=== PATIENT | female | born 1955 | race Hispanic/Latino ===

== ENCOUNTER → 2019-12-22 | Outpatient (CLI) | payer MEDICARE | END | disposition home or self-care (01) | LOC: RAH 12-20 20:47 | PROVIDERS: ATTEND Family Medicine | DX: Z85.3 Personal history of malignant neoplasm of breast (principal) | CPT/HCPCS: 77065 ==

== ENCOUNTER 2019-12-28 12:14 | Emergency (ER) | payer MEDICARE ==
[2019-12-28 13:27] LABS: BASOPHILS % (AUTO) 0.6 % (0.0-5.0); EOSINOPHILS % (AUTO) 4.9 % (0.0-8.0); HEMATOCRIT 39.5 % (36-48); LYMPHOCYTES % (AUTO) 33.3 % (21.0-51.0); MEAN CORPUSCULAR HEMOGLOBIN 29.8 pg (27.0-33.0); MEAN CORPUSCULAR HGB CONC 33.2 g/dL (32.0-36.0); MEAN CORPUSCULAR VOLUME 89.8 fL (79-99); PLATELET COUNT (AUTO) 152 K/uL (130-400); RED CELL DISTRIBUTION WIDTH 13.1 % (11.0-15.5); WHITE BLOOD COUNT (AUTO) 4.7 K/uL (4.8-10.8)
[2019-12-28 13:51] LABS: INR 0.95 (0.85-1.15); PARTIAL THROMBOPLASTIN TIME 27.1 SEC (26.3-35.5); PROTHROMBIN TIME 10.3 SEC (9.6-11.6)
[2019-12-28] MEDS ORDERED: ONDANSETRON HCL 4 MG/2 ML VIAL ONE (13:59)
[2019-12-28] MEDS ORDERED: MORPHINE SULFATE 4 MG/1ML SYG ONE (14:00)
[2019-12-28] MEDS ORDERED: DICYCLOMINE HCL 10 MG/ML 2ML AMP IM ONE (14:07)
[2019-12-28 14:15] LABS: POTASSIUM 3.7 mmol/L (3.5-5.1)
[2019-12-28 14:19] LABS: ALBUMIN 3.7 g/dL (3.5-5.0); BILIRUBIN,DIRECT 0.1 mg/dL (0.0-0.3); BILIRUBIN,TOTAL 0.4 mg/dL (0.2-1.0); TOTAL PROTEIN, SERUM 6.8 g/dL (6.0-8.3)
[2019-12-28 14:39] LABS: CREATININE 0.7 mg/dL (0.5-1.5)
== END 2019-12-28 15:24 | disposition home or self-care (01) ==
LOC: EDH 12:14
DX: R10.31 Right lower quadrant pain (principal); R11.0 Nausea; F41.9 Anxiety disorder, unspecified; F32.9 Major depressive disorder, single episode, unspecified; Z90.710 Acquired absence of both cervix and uterus; Z90.49 Acquired absence of other specified parts of digestive tract
CPT/HCPCS: 36415; 74176; 80048; 80076; 82550; 83690; 84484; 85025; 85610; 85730; 93005; 96372; 99285; J0500; J2270; J2405

== ENCOUNTER 2020-10-26 16:57 | Emergency (ER) | payer MEDICARE ==
[2020-10-26 17:35] LABS: BASOPHILS % (AUTO) 0.4 % (0.0-5.0); EOSINOPHILS % (AUTO) 2.2 % (0.0-8.0); HEMATOCRIT 43.2 % (36-48); LYMPHOCYTES % (AUTO) 40.1 % (21.0-51.0); MEAN CORPUSCULAR HEMOGLOBIN 30.4 pg (27.0-33.0); MEAN CORPUSCULAR HGB CONC 33.1 g/dL (32.0-36.0); MEAN CORPUSCULAR VOLUME 91.9 fL (79-99); MONOCYTES % (AUTO) 6.2 % (3.0-13.0); PLATELET COUNT (AUTO) 178 K/uL (130-400); RED CELL DISTRIBUTION WIDTH 13.2 % (11.0-15.5); WHITE BLOOD COUNT (AUTO) 6.8 K/uL (4.8-10.8)
[2020-10-26] MEDS ORDERED: MEPERIDINE-PF 25 MG/ML SYG ONE (17:35)
[2020-10-26] MEDS ORDERED: 0.9%NACL 1000ML 1,000 ML IV ONE (17:37)
[2020-10-26 17:38] LABS: APPEARANCE,URINE Clear (CLEAR); BILIRUBIN,URINE Negative (NEGATIVE); COLOR,URINE Dark Yellow (YELLOW); GLUCOSE, URINE (UA) Negative (NEGATIVE); KETONES,URINE Trace mg/dL (NEGATIVE); LEUKOCYTE ESTERASE ,URINE Small (NEGATIVE); NITRATE,URINE Negative (NEGATIVE); OCCULT BLOOD,URINE Negative (NEGATIVE); PH,URINE 6.5 (5.0-8.0); PROTEIN,URINE Negative (NEGATIVE)
[2020-10-26 18:02] LABS: BACTERIA,URINE Few /HPF (None Seen); MUCUS,URINE Few LPF (None Seen); RBC,URINE None Seen /HPF (0-1)
[2020-10-26 18:43] LABS: CREATININE 0.8 mg/dL (0.5-1.5); POTASSIUM 3.4 mmol/L (3.5-5.1)
[2020-10-26 18:47] LABS: ALBUMIN 3.6 g/dL (3.5-5.0); BILIRUBIN,TOTAL 0.7 mg/dL (0.2-1.0); TOTAL PROTEIN, SERUM 7.1 g/dL (6.0-8.3)
[2020-10-26] MEDS ORDERED: IOHEXOL-350 75 ML VIAL IV ONE (19:28)
[2021-02-07] MEDS ORDERED: DIPH25CA85 PO (15:56)
[2021-02-07] MEDS ORDERED: LINA290C PO (15:56)
[2021-02-07] MEDS ORDERED: ALPR2TAB2 PO (15:56)
[2021-02-07] MEDS ORDERED: SERT100T PO (15:56)
== END 2020-10-26 21:33 | disposition home or self-care (01) ==
LOC: EDH 16:57
DX: G89.29 Other chronic pain (principal); R10.84 Generalized abdominal pain; R11.2 Nausea with vomiting, unspecified; F41.9 Anxiety disorder, unspecified; F32.9 Major depressive disorder, single episode, unspecified; K21.9 Gastro-esophageal reflux disease without esophagitis; Z90.49 Acquired absence of other specified parts of digestive tract; Z90.710 Acquired absence of both cervix and uterus; Z72.0 Tobacco use
CPT/HCPCS: 36415; 74176; 80053; 81001; 83690; 85025; 87040 ×2; 96361 ×2; 96374; 96375; 99284; J2175; J7030; Q9967

== ENCOUNTER 2020-12-06 17:02 | Emergency (ER) | payer MEDICARE ==
[2020-12-06] MEDS ORDERED: SODIUM CHLORIDE 0.9% 1000ML 1,000 ML IV ONE (17:29)
[2020-12-06 18:00] LABS: BASOPHILS % (AUTO) 0.6 % (0.0-5.0); EOSINOPHILS % (AUTO) 3.3 % (0.0-8.0); HEMATOCRIT 41.6 % (36-48); LYMPHOCYTES % (AUTO) 24.4 % (21.0-51.0); MEAN CORPUSCULAR HEMOGLOBIN 30.9 pg (27.0-33.0); MEAN CORPUSCULAR HGB CONC 34.1 g/dL (32.0-36.0); MEAN CORPUSCULAR VOLUME 90.6 fL (79-99); MONOCYTES % (AUTO) 8.5 % (3.0-13.0); PLATELET COUNT (AUTO) 205 K/uL (130-400); RED BLOOD CELL COUNT(AUTO) 4.59 MIL/uL (4.00-5.50); RED CELL DISTRIBUTION WIDTH 13.6 % (11.0-15.5); WHITE BLOOD COUNT (AUTO) 6.4 K/uL (4.8-10.8)
[2020-12-06 18:09] LABS: CREATININE 1.3 mg/dL (0.5-1.5); POTASSIUM 3.4 mmol/L (3.5-5.1)
[2020-12-06 18:11] LABS: INR 0.97 (0.85-1.15); PROTHROMBIN TIME 10.6 SEC (9.6-11.6)
[2020-12-06 18:13] LABS: PARTIAL THROMBOPLASTIN TIME 27.3 SEC (26.3-35.5)
[2020-12-06 18:14] LABS: ALBUMIN 4.2 g/dL (3.5-5.0); BILIRUBIN,TOTAL 0.4 mg/dL (0.2-1.0); TOTAL PROTEIN, SERUM 8.6 g/dL (6.0-8.3)
[2020-12-06] MEDS ORDERED: KETOROLAC TROMETHAMINE 30MG/ML ONE (19:30)
== END 2020-12-06 21:04 | disposition home or self-care (01) ==
LOC: EDH 17:02
DX: E86.9 Volume depletion, unspecified (principal); R55 Syncope and collapse; G89.29 Other chronic pain; R10.9 Unspecified abdominal pain; F41.9 Anxiety disorder, unspecified; F32.9 Major depressive disorder, single episode, unspecified; K21.9 Gastro-esophageal reflux disease without esophagitis; Z90.49 Acquired absence of other specified parts of digestive tract; Z90.710 Acquired absence of both cervix and uterus; Z88.5 Allergy status to narcotic agent
CPT/HCPCS: 36415; 80053; 82550; 83605; 83690; 84484; 85025; 85610; 85730; 93005; 96361; 96365; 96375; 99284; J1885; J7030

== ENCOUNTER 2021-01-27 18:55 | Emergency (ER) | payer MEDICARE ==
[~2021-01-27] VITALS: Ht 149.9 cm; Wt 62.6 kg
[2021-01-27 20:48] LABS: APPEARANCE,URINE Clear (CLEAR); BILIRUBIN,URINE Negative (NEGATIVE); COLOR,URINE Yellow (YELLOW); GLUCOSE, URINE (UA) Negative (NEGATIVE); KETONES,URINE Negative (NEGATIVE); LEUKOCYTE ESTERASE ,URINE Trace (NEGATIVE); NITRATE,URINE Negative (NEGATIVE); OCCULT BLOOD,URINE Negative (NEGATIVE); PH,URINE 8.5 (5.0-8.0); PROTEIN,URINE Negative (NEGATIVE)
[2021-01-27 20:52] LABS: HEMATOCRIT 37.4 % (36-48); MEAN CORPUSCULAR HEMOGLOBIN 31.1 pg (27.0-33.0); MEAN CORPUSCULAR HGB CONC 34.5 g/dL (32.0-36.0); MEAN CORPUSCULAR VOLUME 90.1 fL (79-99); RED BLOOD CELL COUNT(AUTO) 4.15 MIL/uL (4.00-5.50); RED CELL DISTRIBUTION WIDTH 13.4 % (11.0-15.5); WHITE BLOOD COUNT (AUTO) 6.1 K/uL (4.8-10.8)
[2021-01-27 20:56] LABS: BACTERIA,URINE Rare /HPF (None Seen); MUCUS,URINE Rare LPF (None Seen); RBC,URINE 0-1 /HPF (0-1); SQUAMOUS EPITHELIAL CELL,UR Rare /HPF (0-2)
[2021-01-27 21:00] VITALS: BP 121/70
[2021-01-27] MEDS ORDERED: PROMETHAZINE HCL 25 MG/ML 1ML AMPULE IM SCH (21:00)
[2021-01-27] MEDS ORDERED: LIDOCAINE 2G/250ML 250 ML IV SCH (21:00)
[2021-01-27] MEDS ORDERED: SODIUM CHLORIDE 0.9% 1000ML 1,000 ML IV ONE (21:00)
[2021-01-27 21:05] LABS: CREATININE 0.7 mg/dL (0.5-1.5); POTASSIUM 3.6 mmol/L (3.5-5.1)
[2021-01-27] MEDS ORDERED: LIDOCAINE HCL-MPF 2% 5ML VIAL ONE (21:14)
[2021-01-27] MEDS ORDERED: SODIUM CHLORIDE 0.9% 100 ML IV ONE (21:15)
[2021-01-27 21:30] LABS: ALBUMIN 3.6 g/dL (3.5-5.0); BILIRUBIN,DIRECT 0.1 mg/dL (0.0-0.3); BILIRUBIN,TOTAL 0.4 mg/dL (0.2-1.0); TOTAL PROTEIN, SERUM 7.2 g/dL (6.0-8.3)
[2021-01-27] MEDS ORDERED: LIDOCAINE HCL-MPF 2% 5ML VIAL IV SCH (21:30)
== END 2021-01-28 00:13 | disposition left against medical advice (07) ==
LOC: EDH 18:55
DX: R10.9 Unspecified abdominal pain (principal); G89.29 Other chronic pain; R11.2 Nausea with vomiting, unspecified; F41.9 Anxiety disorder, unspecified; F03.90 Unspecified dementia, unspecified severity, without behavioral disturbance, psychotic disturbance, mood disturbance, and anxiety; M79.7 Fibromyalgia; Z85.3 Personal history of malignant neoplasm of breast; M19.90 Unspecified osteoarthritis, unspecified site; Z88.5 Allergy status to narcotic agent; Z79.899 Other long term (current) drug therapy; Z87.19 Personal history of other diseases of the digestive system; Z90.710 Acquired absence of both cervix and uterus; Z98.890 Other specified postprocedural states
CPT/HCPCS: 36415; 80048; 80076; 81001; 83605; 83690; 84484; 85027; 93005; 96360; 96372; 99284; J2550; J3490; J7030; J2001

== ENCOUNTER 2022-10-26 12:22 | Emergency (ER) | payer OTHER, MEDICARE ==
[~2022-10-26] VITALS: Ht 152.4 cm; Wt 65.8 kg
[~2022-10-26 12:22] MED LIST: ALPR2TAB2 PO; DIPH25CA85 PO; LINA290C PO; SERT100T PO
[2022-10-26 13:02] LABS: BASOPHILS % (AUTO) 0.5 % (0.0-5.0); EOSINOPHILS % (AUTO) 3.4 % (0.0-8.0); HEMATOCRIT 40.6 % (36-48); LYMPHOCYTES % (AUTO) 38.7 % (21.0-51.0); MEAN CORPUSCULAR HGB CONC 34.5 g/dL (32.0-36.0); MEAN CORPUSCULAR VOLUME 87.1 fL (79-99); MONOCYTES % (AUTO) 5.5 % (3.0-13.0); NEUTROPHILS % (AUTO) 51.7 % (40.0-77.0); PLATELET COUNT (AUTO) 157 K/uL (130-400); RED BLOOD CELL COUNT(AUTO) 4.66 MIL/uL (4.00-5.50); RED CELL DISTRIBUTION WIDTH 13.3 % (11.0-15.5); WHITE BLOOD COUNT (AUTO) 6.1 K/uL (4.8-10.8)
[2022-10-26 13:13] LABS: CREATININE 0.6 mg/dL (0.5-1.5); POTASSIUM 3.5 mmol/L (3.5-5.1)
[2022-10-26 13:22] LABS: ALBUMIN 3.7 g/dL (3.5-5.0); MAGNESIUM 1.9 mg/dL (1.80-2.40); TOTAL PROTEIN, SERUM 7.2 g/dL (6.0-8.3)
[2022-10-26 13:54] LABS: APPEARANCE,URINE CLEAR (CLEAR); BILIRUBIN,URINE NEGATIVE (NEGATIVE); COLOR,URINE YELLOW (YELLOW); GLUCOSE, URINE (UA) NEGATIVE (NEGATIVE); KETONES,URINE NEGATIVE (NEGATIVE); LEUKOCYTE ESTERASE ,URINE NEGATIVE Leu/uL (NEGATIVE); NITRATE,URINE NEGATIVE (NEGATIVE); OCCULT BLOOD,URINE NEGATIVE (NEGATIVE); PH,URINE 5.5 (5.0-8.0); PROTEIN,URINE NEGATIVE (NEGATIVE); UROBILINOGEN,URINE 0.2 mg/dL (0.2-1.0)
[2022-10-26 14:17] LABS: B-TYPE NATRIURETIC PEPTIDE 6 pg/mL (0-100)
[2022-10-26] MEDS ORDERED: MEPERIDINE-PF 25 MG/ML SYG IM ONE (17:30)
[2022-10-26] MEDS ORDERED: PROMETHAZINE HCL 25 MG/ML 1ML AMPULE IM ONE (17:30)
[2022-10-26 17:40] VITALS: BP 147/68
== END 2022-10-26 18:12 | disposition home or self-care (01) ==
LOC: EDH 12:22
DX: G89.29 Other chronic pain (principal); R10.11 Right upper quadrant pain; E78.00 Pure hypercholesterolemia, unspecified; F17.200 Nicotine dependence, unspecified, uncomplicated; Z90.710 Acquired absence of both cervix and uterus; Z90.89 Acquired absence of other organs; Z79.899 Other long term (current) drug therapy; Z88.5 Allergy status to narcotic agent; Z88.8 Allergy status to other drugs, medicaments and biological substances; Z20.822 Contact with and (suspected) exposure to COVID-19
CPT/HCPCS: 99285; 74176; 71045; 87635; 83735; 84484; 80053; 83880; 83690; 85025; 87804 ×2; 81003; 36415; 96372; 93005; C9803; J2550; J2175

== ENCOUNTER 2023-06-21 16:05 | Emergency (ER) | payer OTHER, MEDICARE ==
[~2023-06-21] VITALS: Ht 149.9 cm; Wt 64.4 kg
[2023-06-21 16:58] LABS: BASOPHILS # (AUTO) 0.04 K/uL (0.00-0.20); BASOPHILS % (AUTO) 0.4 % (0.0-5.0); HEMATOCRIT 44.8 % (36-48); IMMATURE GRANULOCYTE ABSOLUTE 0.04 K/uL (0-1); LYMPHOCYTES # (AUTO) 1.2 K/uL (1.0-4.8); MEAN CORPUSCULAR HEMOGLOBIN 31.8 pg (27.0-33.0); MEAN CORPUSCULAR HGB CONC 34.8 g/dL (32.0-36.0); MEAN CORPUSCULAR VOLUME 91.2 fL (79-99); MONOCYTES # (AUTO) 0.2 K/uL (0.1-1.0); MONOCYTES % (AUTO) 2.3 % (3.0-13.0); NEUTROPHILS # (AUTO) 8.3 K/uL (1.8-7.7); NEUTROPHILS % (AUTO) 84.9 % (40.0-77.0); PLATELET COUNT (AUTO) 188 K/uL (130-400); RED BLOOD CELL COUNT(AUTO) 4.91 MIL/uL (4.00-5.50); WHITE BLOOD COUNT (AUTO) 9.8 K/uL (4.8-10.8)
[2023-06-21 17:07] LABS: CREATININE 0.8 mg/dL (0.5-1.5); POTASSIUM 3.4 mmol/L (3.5-5.1)
[2023-06-21 17:24] LABS: ALBUMIN 4.1 g/dL (3.5-5.0); BILIRUBIN,TOTAL 0.8 mg/dL (0.2-1.0); TOTAL PROTEIN, SERUM 8.2 g/dL (6.0-8.3)
[2023-06-21] MEDS ORDERED: 0.9%NACL 1000ML 1,000 ML IV ONE (19:00)
[2023-06-21] MEDS ORDERED: PANTOPRAZOLE 40 MG/VIAL IVP ONE (19:00)
[2023-06-21] MEDS ORDERED: PROMETHAZINE HCL 25 MG/ML 1ML AMPULE IM ONE (19:00)
[2023-06-21] MEDS ORDERED: HALOPERIDOL INJ 5 MG/ML VIAL IM SCH (19:30)
[2023-06-21 20:07] LABS: APPEARANCE,URINE CLEAR (CLEAR); BILIRUBIN,URINE NEGATIVE (NEGATIVE); COLOR,URINE YELLOW (YELLOW); GLUCOSE, URINE (UA) NEGATIVE (NEGATIVE); KETONES,URINE NEGATIVE (NEGATIVE); LEUKOCYTE ESTERASE ,URINE NEGATIVE Leu/uL (NEGATIVE); NITRATE,URINE NEGATIVE (NEGATIVE); OCCULT BLOOD,URINE NEGATIVE (NEGATIVE); PROTEIN,URINE 20 mg/dL (NEGATIVE); UROBILINOGEN,URINE 0.2 mg/dL (0.2-1.0)
[2023-06-21 20:08] LABS: ADD UA MICROSCOPIC YES
[2023-06-21 20:09] LABS: BACTERIA,URINE RARE /HPF (None Seen); MUCUS,URINE FEW LPF (None Seen); SQUAMOUS EPITHELIAL CELL,UR FEW /HPF (0-2); WBC,URINE 0-1 /HPF (0-1)
[2023-06-21] MEDS ORDERED: ALPR2TAB7 PO (20:57)
[2023-06-21] MEDS ORDERED: OMEP40CA21 PO (20:59)
[2023-06-21] MEDS ORDERED: DICY20TA2 PO (20:59)
[2023-06-21 21:52] VITALS: BP 142/80; PULSE 92; RESP 18; O2SAT 96
== END 2023-06-21 21:55 | disposition home or self-care (01) ==
LOC: EDH 16:05
DX: R10.11 Right upper quadrant pain (principal); F03.93 Unspecified dementia, unspecified severity, with mood disturbance; E78.00 Pure hypercholesterolemia, unspecified; F32.A Depression, unspecified; F17.200 Nicotine dependence, unspecified, uncomplicated; Z85.3 Personal history of malignant neoplasm of breast; Z88.5 Allergy status to narcotic agent; Z88.8 Allergy status to other drugs, medicaments and biological substances; Z90.49 Acquired absence of other specified parts of digestive tract
CPT/HCPCS: 99285; 96374; 76705; 71045; 96361; 84484; 80053; 83690; 85025; 81001; 36415; 96372 ×2; 93005; J7030; J2550; J1630; C9113

== ENCOUNTER 2024-09-29 14:17 | Emergency (ER) | payer OTHER, MEDICARE ==
[~2024-09-29] VITALS: Ht 149.9 cm; Wt 63.5 kg
[~2024-09-29 14:17] MED LIST changes: +ALPR2TAB7 PO; +DICY20TA2 PO; +OMEP40CA21 PO
[2024-09-29] MEDS: ibuPROFEN 800 MG TAB PO ONE (15:42)
[2024-09-29] MEDS: acetaMINOPHEN 500 MG TABLET PO ONE (15:42)
[2024-09-29 16:17] VITALS: BP 135/76; PULSE 86; RESP 16; TEMP 98.8; O2SAT 97
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
[2024-09-29] MEDS: MEPERIDINE-PF 25 MG/ML SYG IM ONE (17:02)
[2024-09-29] MEDS: PROMETHAZINE HCL 25 MG/ML 1ML AMPULE IM ONE (17:02)
[2024-09-29] MEDS ORDERED: MELO-108 PO (17:12)
== END 2024-09-29 17:25 | disposition home or self-care (01) ==
LOC: EDH 14:17
DX: G89.29 Other chronic pain (principal); M25.512 Pain in left shoulder; E78.00 Pure hypercholesterolemia, unspecified; F17.200 Nicotine dependence, unspecified, uncomplicated; K21.9 Gastro-esophageal reflux disease without esophagitis; Z79.899 Other long term (current) drug therapy; Z88.5 Allergy status to narcotic agent; Z88.8 Allergy status to other drugs, medicaments and biological substances; Z90.710 Acquired absence of both cervix and uterus; Z91.041 Radiographic dye allergy status
CPT/HCPCS: 99284; 96372 ×2; J2550; J2175

== ENCOUNTER → 2024-10-07 | Outpatient (CLI) | payer OTHER ==
[~2024-10-07] MED LIST changes: +MELO-108 PO
== END | disposition home or self-care (01) ==
LOC: RAH 13:54
PROVIDERS: ATTEND Internal Medicine Cardiovascular Disease
DX: Z13.6 Encounter for screening for cardiovascular disorders (principal)
CPT/HCPCS: 75571

== ENCOUNTER → 2024-10-17 | Outpatient (CLI) | payer MEDICARE, OTHER ==
--- NOTE | 2024-10-17 14:22 | HMCIMG ---
CT CHEST W/O CONTRAST HISTORY: Chest pain and shortness of breath COMPARISON: None TECHNIQUE: Multiple sequential axial images of the chest were obtained from the thoracic inlet through upper abdomen. Patient was not given contrast through intravenous route. FINDINGS: There is no evidence of pulmonary nodule or parenchymal disease. No pleural effusion or pericardial effusion is seen. COPD changes are seen with interstitial fibrosis. There is no evidence of pneumothorax. There are normal size mediastinal and hilar lymph nodes. The heart is not enlarged. Degenerative changes of the thoracolumbar spine are present. There is no evidence of adrenal nodule. Postcholecystectomy changes are seen. There is hypodense focus measuring 3 cm in the right hepatic lobe most likely related to hepatic cyst. This was also seen on previous CT of the abdomen study from October 26, 2022. IMPRESSION: 1. No evidence of pulmonary nodule or effusion is seen. COPD with interstitial fibrosis. Suspect right hepatic cyst. CT was performed with one or more following dose reduction techniques: automated exposure control, adjustment of the mA and kv according to patient's size, or use of a iterative reconstruction technique.
--- NOTE | 2024-10-19 12:13 | HMCSR ---
APPROVED REPORT EXAM: Two-dimensional and M-mode echocardiogram with Doppler and color Doppler. INDICATION ICD: R002.2, R07.9 2D Dimensions RVDd2.8 cmLVEF(%)45.6 (>50%)LVEF(%, simp.)47 % IVSd0.8 (0.7-1.1cm)FS(%)22 %LA ESV INDEX (BP)29.62 mL/m2 LVDd4.1 (3.8-5.6cm)LVOT diam2.0 (1.8-2.4cm) PWd0.8 (0.7-1.1cm) IVSs1.0 cm LVDs3.2 (2.5-4.0cm) PWs1.2 cm M-Mode Dimensions EPSS0.9 cm LA (MM)3.8 (1.6-4.0cm) Ao Root(MM)2.8 (2.0-3.7cm) Aortic Valve AoV Vmax1.0 m/Tiana Peak GR4.4 mmHgLVOT Vmax0.8 m/s AoV VTI0.2 mAo Mean GR2.5 mmHgLVOT VTI0.14 m DEB (VMAX)2.5 cm2AVA (VTI) 2.5 cm2 Mitral Valve MV E Vmax39.1 cm/sDECEL Vstl673 msMV Peak GR2 mmHg MV A Vmax49.7 cm/sP 1/2 T47 msMV Mean GR1 mmHg E/A ratio0.8MVA (PHT)4.7 cm2 TDI E/E' Medial9.8E/E' Lateral6.5 Medial E' Peak V4.00 cm/sLateral E' Peak V6.00 cm/s Pulmonary Valve PV Vmax0.8 m/s Tricuspid Valve TR Vmax1.3 m/sRAP (EST) 8 heIhUEHH35.0 mmHg TR Peak GR7.0 mmHg Left Ventricle The left ventricle is normal size. There is normal left ventricular wall thickness. LVEF is 45-50%. N o left ventricle thrombus noted on this study. Stage I diastolic dysfunction. Right Ventricle The right ventricle is normal size. Right ventricular systolic function is mildly reduced. Atria The left atrium size is normal. There is no mass or thrombus suspected in the left atrium. The right atrium size is normal. There is no mass or thrombus suspected in the right atrium. Aortic Valve The aortic valve is normal in structure. No aortic regurgitation is present. There is no aortic valvu lar stenosis. Mitral Valve The mitral valve is normal in structure. There is trivial mitral valve regurgitation noted. There is no mitral valve stenosis. Tricuspid Valve The tricuspid valve is normal in structure. There is trivial tricuspid valve regurgitation noted. Pulmonic Valve The pulmonary valve is normal in structure. There is no pulmonic valvular regurgitation. Great Vessels The aortic root is normal in size. IVC is not well visualized. Pericardium There is no pericardial effusion. Other Information Quality : Adequate Conclusion The left ventricle is normal size. LVEF is 45-50%. Stage I diastolic dysfunction. Right ventricular systolic function is mildly reduced. The left atrium size is normal. There is no mass or thrombus suspected in the left atrium. The right atrium size is normal. The aortic valve is normal in structure. No aortic regurgitation is present. There is no aortic valvular stenosis. The mitral valve is normal in structure. There is trivial mitral valve regurgitation noted. There is no mitral valve stenosis. There is trivial tricuspid valve regurgitation noted. There is no pulmonic valvular regurgitation. The aortic root is normal in size. IVC is not well visualized. There is no pericardial effusion.
== END | disposition home or self-care (01) ==
LOC: RAH 13:31
PROVIDERS: ATTEND Internal Medicine Cardiovascular Disease
DX: J44.9 Chronic obstructive pulmonary disease, unspecified (principal); J84.10 Pulmonary fibrosis, unspecified; R00.2 Palpitations; R07.9 Chest pain, unspecified; R06.02 Shortness of breath; M47.815 Spondylosis without myelopathy or radiculopathy, thoracolumbar region; Z90.49 Acquired absence of other specified parts of digestive tract
CPT/HCPCS: 71250; 93306